=== PATIENT | male | born 1945 | race Caucasian/White ===

== ENCOUNTER 2023-11-10 15:32 | Outpatient (CLI) | payer MEDICARE, OTHER | END 2023-11-10 15:33 | disposition home or self-care (01) | LOC: CSHWCC 15:32 | PROVIDERS: ATTEND Nurse Practitioner Family | DX: T81.32XD Disruption of internal operation (surgical) wound, not elsewhere classified, subsequent encounter (principal); S91.301D Unspecified open wound, right foot, subsequent encounter | CPT/HCPCS: 11043; 11046 ==

== ENCOUNTER 2023-11-24 15:28 | Outpatient (CLI) | payer MEDICARE, OTHER | END 2023-11-24 15:29 | disposition home or self-care (01) | LOC: CSHWCC 15:28 | PROVIDERS: ATTEND Nurse Practitioner Family | DX: S91.301D Unspecified open wound, right foot, subsequent encounter (principal); T81.329D Deep disruption or dehiscence of operation wound, unspecified, subsequent encounter | CPT/HCPCS: 11042; 97605 ==

== ENCOUNTER 2023-12-01 15:36 | Outpatient (CLI) | payer MEDICARE, OTHER | END 2023-12-01 15:37 | disposition home or self-care (01) | LOC: CSHWCC 15:36 | PROVIDERS: ATTEND Nurse Practitioner Family | DX: S91.301A Unspecified open wound, right foot, initial encounter (principal) | CPT/HCPCS: 11042; 97605 ==

== ENCOUNTER 2023-12-15 16:24 | Outpatient (CLI) | payer MEDICARE, OTHER | END 2023-12-15 16:25 | disposition home or self-care (01) | LOC: CSHWCC 16:24 | PROVIDERS: ATTEND Nurse Practitioner Family | DX: S91.301D Unspecified open wound, right foot, subsequent encounter (principal); T81.329D Deep disruption or dehiscence of operation wound, unspecified, subsequent encounter | CPT/HCPCS: 11042; G0463; 99212 ==

== ENCOUNTER 2023-12-22 14:55 | Outpatient (CLI) | payer MEDICARE, OTHER | END 2023-12-22 14:56 | disposition home or self-care (01) | LOC: CSHWCC 14:55 | PROVIDERS: ATTEND Nurse Practitioner Family | DX: S91.301D Unspecified open wound, right foot, subsequent encounter (principal); T81.329D Deep disruption or dehiscence of operation wound, unspecified, subsequent encounter | CPT/HCPCS: 11042; G0463; 99212 ==

== ENCOUNTER 2023-12-29 15:06 | Outpatient (CLI) | payer MEDICARE, OTHER | END 2023-12-29 15:07 | disposition home or self-care (01) | LOC: CSHWCC 15:06 | PROVIDERS: ATTEND Nurse Practitioner Family | DX: T81.329D Deep disruption or dehiscence of operation wound, unspecified, subsequent encounter (principal); S91.301D Unspecified open wound, right foot, subsequent encounter | CPT/HCPCS: 11042 ==

== ENCOUNTER 2024-01-05 15:27 | Outpatient (CLI) | payer MEDICARE, OTHER | END 2024-01-05 15:28 | disposition home or self-care (01) | LOC: CSHWCC 15:27 | PROVIDERS: ATTEND Nurse Practitioner Family | DX: T81.329D Deep disruption or dehiscence of operation wound, unspecified, subsequent encounter (principal); S93.30 Unspecified subluxation and dislocation of foot | CPT/HCPCS: 11042 ==

== ENCOUNTER 2024-01-12 14:59 | Outpatient (CLI) | payer MEDICARE, OTHER | END 2024-01-12 15:00 | disposition home or self-care (01) | LOC: CSHWCC 14:59 | PROVIDERS: ATTEND Nurse Practitioner Family | DX: S91.301D Unspecified open wound, right foot, subsequent encounter (principal); T81.329D Deep disruption or dehiscence of operation wound, unspecified, subsequent encounter | CPT/HCPCS: 11042 ==

== ENCOUNTER 2024-01-19 15:37 | Outpatient (CLI) | payer MEDICARE, OTHER | END 2024-01-19 15:38 | disposition home or self-care (01) | LOC: CSHWCC 15:37 | PROVIDERS: ATTEND Nurse Practitioner Family | DX: S91.301D Unspecified open wound, right foot, subsequent encounter (principal); T81.329D Deep disruption or dehiscence of operation wound, unspecified, subsequent encounter | CPT/HCPCS: 11042 ==

== ENCOUNTER 2024-01-26 15:33 | Outpatient (CLI) | payer MEDICARE, OTHER | END 2024-01-26 15:34 | disposition home or self-care (01) | LOC: CSHWCC 15:33 | PROVIDERS: ATTEND Family Medicine | DX: T81.329D Deep disruption or dehiscence of operation wound, unspecified, subsequent encounter (principal); S91.301D Unspecified open wound, right foot, subsequent encounter | CPT/HCPCS: 99213; G0463 ==

== ENCOUNTER 2024-02-02 15:55 | Outpatient (CLI) | payer MEDICARE, OTHER | END 2024-02-02 15:56 | disposition home or self-care (01) | LOC: CSHWCC 15:55 | PROVIDERS: ATTEND Nurse Practitioner Family | DX: S91.301D Unspecified open wound, right foot, subsequent encounter (principal); T81.329D Deep disruption or dehiscence of operation wound, unspecified, subsequent encounter | CPT/HCPCS: 99213; G0463 ==

== ENCOUNTER 2024-02-16 15:22 | Outpatient (CLI) | payer MEDICARE, OTHER | END 2024-02-16 15:23 | disposition home or self-care (01) | LOC: CSHWCC 15:22 | PROVIDERS: ATTEND Nurse Practitioner Family | DX: Z87.2 Personal history of diseases of the skin and subcutaneous tissue (principal) | CPT/HCPCS: 99212; G0463 ==